=== PATIENT | male | born 1985 | race Caucasian/White ===

== ENCOUNTER 2024-04-05 06:20 | Day surgery (SDC) | payer BC, SELFPAY ==
[2024-04-05] VITALS (7 sets, daily range): BP systolic 107–133; BP diastolic 72–91; BMI 27.0
== END 2024-04-05 11:35 | disposition home or self-care (01) ==
LOC: SDS 06:20
PROVIDERS: ATTENDING PHYSICIAN Otolaryngology
DX: J34.2 Deviated nasal septum (principal); J34.3 Hypertrophy of nasal turbinates; J34.89 Other specified disorders of nose and nasal sinuses
CPT/HCPCS: 30520; 30140; 88300

== ENCOUNTER → 2024-05-14 08:41 | Outpatient (REF) | payer BC, SELFPAY | LOC: PAVMRI 08:41 | PROVIDERS: ATTENDING PHYSICIAN Otolaryngology; FAMILY PHYSICIAN Registered Nurse | DX: H90.41 Sensorineural hearing loss, unilateral, right ear, with unrestricted hearing on the contralateral side (principal) | CPT/HCPCS: 70553; A9575 ==